=== PATIENT | female | born 1975 | race Caucasian/White ===

== ENCOUNTER 2016-09-24 16:06 | Emergency (ER) | payer OTHER ==
--- NOTE | ~2016-09-24 | CT71 ---
[facility] A Service of [facility] RADIOLOGY TEXT RESULTS PATIENT: DHAVAL BENÍTEZ LOCATION: [facility] : 73 UNIT #: [id number] AGE: [address]: Estuardo Zuniga MD SEX: F ORDER DR: [id number] [facility] [address] [place], [place] [address] [id number] MR#: [id number] #: [id number] NAME: DHAVAL BENÍTEZ. : 1975 SEX: F STUDY DATE/TIME: 09/24/2016 17:44 UNIT: [facility] ROOM: STUDY DESCRIPTION: CT Head Wo Contrast Attending Physician: Estuardo Zuniga M.D. Ordering Physician: Estuardo Zuniga M.D. Primary Care Physician: Jam Silva M.D. MEDICAL IMAGING REPORT This report is preliminary unless electronic signature is present EXAM Head CT without contrast. HISTORY Headache after waking up from a nap today with shakiness. TECHNIQUE Axial images were obtained without contrast and compared to previous scan from 12/27/2009. This CT exam was performed with one or more of the following radiation dose reduction techniques: automatic exposure control, adjustment of mA and/or kV according to patient size, and iterative reconstruction. FINDINGS Generalized atrophy is noted. There is no evidence of mass, hemorrhage or edema. No midline shift is seen. Extraaxial structures are remarkable for small mucous retention cyst in the sphenoid sinus on the right. IMPRESSION Atrophy. No acute findings. Dictated by... Phoenix Erazo M.D. THIS IS AN ELECTRONICALLY VERIFIED REPORT Phoenix Erazo M.D. at 09/25/2016 10:03 AM KALI/vania TD: 09/25/2016 01:09 JOB #: [id number] MEDICAL IMAGING REPORT [facility] A Service of [facility] & [facility] RADIOLOGY TEXT RESULTS PATIENT: DHAVAL BENÍTEZ LOCATION: [facility] : 73 UNIT #: [id number] AGE: [address]: Estuardo Zuniga MD SEX: F ORDER DR: Page 1 of 1 COPY
--- NOTE | ~2016-09-24 | EKG ---
PATIENT: DHAVAL BENÍTEZ UNIT #: [id number] Ventricular Rate: 50 BPM Atrial Rate: 50 BPM P-R Interval: 158 ms QRS Duration: 94 ms Q-T Interval: 460 ms QTC Calculation(Bezet): 419 ms P [place]: 59 degrees Calculated R [place]: 46 degrees Calculated T [place]: 17 degrees Diagnosis Line: Sinus bradycardia Diagnosis Line: Nonspecific ST abnormality Diagnosis Line: Otherwise normal ECG Diagnosis Line: When compared with ECG of 26-APR-2015 14:04, Diagnosis Line: Vent. rate has decreased BY 30 BPM Diagnosis Line: Reconfirmed by OSBALDO GAMINO MD ([id number]) on Diagnosis Line: 09/25/2016 8:04:11 PM INTERPRETING MD: HANNY VELAZQUEZ
--- NOTE | ~2016-09-24 | EKG ---
PATIENT: DHAVAL BENÍTEZ UNIT #: [id number] Ventricular Rate: 50 BPM Atrial Rate: 50 BPM P-R Interval: 158 ms QRS Duration: 94 ms Q-T Interval: 460 ms QTC Calculation(Bezet): 419 ms P [place]: 59 degrees Calculated R [place]: 46 degrees Calculated T [place]: 17 degrees Diagnosis Line: Sinus bradycardia Diagnosis Line: Nonspecific ST abnormality Diagnosis Line: Abnormal ECG Diagnosis Line: When compared with ECG of 26-APR-2015 14:04, Diagnosis Line: Vent. rate has decreased BY 30 BPM Diagnosis Line: Confirmed by OSBALDO GAMINO MD ([id number]) on 09/25/2016 Diagnosis Line: 8:03:45 PM INTERPRETING MD: HANNY VELAZQUEZ
[~2016-09-24 16:06] MED LIST: ACETAMINOPHEN650 M3 PO; ALPRAZOLAM PO; ASPIRIN81 M1 PO; CERTAGEN PO; EPIDUO; FLUCONAZOLE150 M1 PO; LEXAPRO PO; LEXAPRO20 MG PO; PREVACID PO; XYZAL PO; ZITHROMAX PO
[2016-09-24 17:52] LABS: BASOPHIL# 0.1 X10e3 (0-0.3); BASOPHIL% 0.7 % (0-2.5); EOSINOPHIL# 0.3 X10e3 (0-0.7); EOSINOPHIL% 2.6 % (0.0-7.0); HEMATOCRIT 41.5 % (35.0-45.0); HEMOGLOBIN 13.5 gm/dL (12.0-16.0); LYMPHOCYTE# 3.2 X10e3 (1.0-3.5); LYMPHOCYTE% 26.3 % (17.0-45.0); MEAN CORPUSCULAR HEMOGLOBIN 29.4 PG (28-34); MEAN CORPUSCULAR HGB CONC 32.7 g/dL (30-36); MONOCYTE# 0.9 X10e3 (0-1.0); MONOCYTE% 7.6 % (3.0-12.0); NEUTROPHIL# 7.5 X10e3 (1.5-7.1); NEUTROPHIL% 62.8 % (40-75); PLATELET COUNT 244 X10e3 (140-420); RED BLOOD COUNT 4.61 X10e (3.90-5.30); RED CELL DISTRIBUTION WIDTH 13.2 % (11.0-15.5)
[2016-09-24 17:56] LABS: DIFF IND NO
[2016-09-24 18:16] LABS: BUN/CREATININE RATIO 17.77; CALCIUM SERUM 9.1 mg/dL (8.4-10.2); CREATININE SERUM 0.9 mg/dL (0.6-1.4); GLOM FILT RATE Estimated 79.5 mL/min (>60); POTASSIUM 3.9 mmol/L (3.5-5.1)
== END 2016-09-24 19:10 | disposition home or self-care (01) ==
LOC: CED 16:06
PROVIDERS: Emergency Medicine
DX: R51 Headache (principal); F41.9 Anxiety disorder, unspecified; F32.9 Major depressive disorder, single episode, unspecified; K21.9 Gastro-esophageal reflux disease without esophagitis
CPT/HCPCS: 36415; 70450; 80048; 84703; 85025; 93005; 99284